=== PATIENT | female | born 1995 | race Caucasian/White ===

== ENCOUNTER 2020-11-22 02:23 | Emergency (ER) | payer OTHER ==
[~2020-11-22] VITALS: Ht 160 cm; Wt 122.5 kg
[2020-11-22 02:26] VITALS: BP 121/85
[2020-11-22] MEDS ORDERED: IBU600 MG PO (02:45)
== END 2020-11-22 03:00 | disposition home or self-care (01) ==
LOC: ER 02:23
DX: M25.532 Pain in left wrist (principal); J45.909 Unspecified asthma, uncomplicated; Z88.1 Allergy status to other antibiotic agents; Z88.8 Allergy status to other drugs, medicaments and biological substances